=== PATIENT | female | born 2000 | race Caucasian/White ===

== ENCOUNTER 2023-08-29 23:02 | Emergency (ER) | payer OTHER, SELFPAY ==
[2023-08-29 23:07] VITALS: BP 115/81; PULSE 100; RESP 16; TEMP 36.4; O2SAT 98; BMI 27.5
[2023-08-29 23:24] LABS: Appearance Urine Cloudy (Clear); Bilirubin Urine Negative (Negative); Blood Urine 3+ (Negative); Color Urine Red (Yellow); Glucose Urine Negative (Negative); Ketones Urine Trace (Negative); Leukocyte Esterase Urine 1+ (Negative); Nitrite Urine Negative (Negative); Protein Urine 3+ (Negative); Specific Gravity Urine 1.025 (1.000-1.030); Urobilinogen Urine 0.2 (0.2-1.0); pH Urine 6.5 (5.0-8.5)
--- NOTE | 2023-08-29 23:25 | ED_ITS ---
HPI - Female Genitourinary General Chief complaint: Urogenital Problems, Female Stated complaint: blood in urine Time Seen by Provider: 08/29/23 23:10 History of Present Illness HPI Narrative: This 23-year-old female comes in with symptoms of dysuria that began about 4 hours prior to arrival. She is reporting hematuria with pain with voiding, increased frequency, and abdominal pain. She does not report any flank pain or fevers. Related Data Home Medications Medication Instructions Recorded Confirmed norethindrone acetate 1 mg-ethinyl 1 tab PO DAILY 08/29/23 08/29/23 estradiol 20 mcg tablet (June) Allergies Allergy/AdvReac Type Severity Reaction Status Date / Time No Known Drug Allergies Allergy Verified 08/29/23 23:09 Review of Systems Status of ROS: Reports: 10 or more systems reviewed and unremarkable except as noted in History and below Narrative: Constitutional: No fevers, no weight gain or loss. Eyes: No discharge. No vision changes. HENT: No congestion, no sore throat, no ear pain. Cardiovascular: No chest pain, no palpitations. Respiratory: No shortness of breath, no wheezes, no cough. Gastrointestinal: No abdominal pain, no vomiting, no diarrhea. Genitourinary: Dysuria the symptoms as described above. Musculoskeletal: Normal range of motion. Skin: No rashes, no pruritis. Neurological: No dizziness, weakness, sensory change, speech change. Endo/Heme/Allergies: No bruising or bleeding. No polydipsia. Pysch: no suicidality, no anxiety, no insomnia. All other systems reviewed and are negative. Exam Narrative: Exam Narrative: Constitutional: Well-developed, well-nourished, no acute distress. HEENT: Normocephalic, atraumatic. Neck: Normal range of motion. Nontender. Supple. Heart: Intact distal pulses. Lungs: No chest discomfort. No wheezes, rhonchi, or rales. Abdomen: Lower abdominal tenderness. No flank pain. Back: Normal range of motion. Extremities: Normal range of motion. No injury. Skin: Intact. No rash. Warm. No erythema or pallor. Neurologic: No altered sensation. No weakness. Alert and oriented. Psychiatric: No suicidality. No anxiety or depression. No insomnia. Nursing notes and vitals signs are reviewed. Const: Vital Signs, click to edit/add: Vital Signs - 24 hr 08/29/23 23:07 Temperature 97.6 F Pulse Rate [Left P ulse Oximeter] 100 Respiratory Rate 16 Blood Pressure [Ri ght Upper Arm] 115/81 Pulse Oximetry 98 Oxygen Delivery Me thod Room Air Course Vital Signs Vital signs: Initial Vital Signs Temperature 97.6 F 08/29/23 23:07 Temperature Source Temporal Artery Scan 08/29/23 23:07 Pulse Rate 100 08/29/23 23:07 Pulse Rhythm Regular 08/29/23 23:07 Respiratory Rate 16 08/29/23 23:07 Blood Pressure 115/81 08/29/23 23:07 Blood Pressure Mean 92 08/29/23 23:07 Blood Pressure Position Sitting 08/29/23 23:07 Pulse Oximetry 98 08/29/23 23:07 Oxygen Delivery Method Room Air 08/29/23 23:07 Vital Signs Temperature 97.6 F 08/29/23 23:07 Pulse Rate 100 08/29/23 23:07 Respiratory Rate 16 08/29/23 23:07 Blood Pressure 115/81 08/29/23 23:07 Pulse Oximetry 98 08/29/23 23:07 Oxygen Delivery Method Room Air 08/29/23 23:07 Temperature 97.6 F 08/29/23 23:07 Pulse Rate 100 08/29/23 23:07 Respiratory Rate 16 08/29/23 23:07 Blood Pressure 115/81 08/29/23 23:07 Pulse Oximetry 98 08/29/23 23:07 Oxygen Delivery Method Room Air 08/29/23 23:07 Medications Administered Medications: Generic Name Dose Route Start Last Admin Trade Name Nehemiahq PRN Reason Stop Dose Admin Phenazopyridine HCl 200 mg 08/29/23 23:25 08/29/23 23:35 Phenazopyridine Hcl 200 Mg Tablet PO 08/29/23 23:26 200 mg ONCE ONE Administration MDM - Female Genitourinary MDM Narrative Medical decision making narrative: This patient comes in with dysuria symptoms starting about 4 hours prior to arrival. She has gross hematuria. Urinalysis does show hematuria and elevated white blood cell count to 5-10 per high-powered field. Leukocyte esterase and nitrites are negative. This is likely due to urinary tract infection. Urine cultures are pending. Patient did receive an oral tablet of Pyridium for symptomatic relief here. She also received a prescription for Keflex from the [facility] Lab Data Labs: Lab Results 08/29/23 Range/Units 23:15 Urine Color Red A (Yellow) Urine Appearance Cloudy A (Clear) Urine pH 6.5 (5.0-8.5) Ur Specific [place] 1.025 (1.000-1.030) Urine Protein 3+ A (Negative) Urine Glucose (UA) Negative (Negative) Urine Ketones Trace A (Negative) Urine Blood 3+ A (Negative) Urine Nitrite Negative (Negative) Urine Bilirubin Negative (Negative) Urine Urobilinogen 0.2 (0.2-1.0) Ur Leukocyte Esterase 1+ A (Negative) Urine RBC 25-50 A (0-2) Urine WBC 5-10 A (0-5) Ur Squamous Epith Cells Few (None-Few) Urine Bacteria Few A (None) Discharge Plan Discharge Clinical Impression: Urinary tract infection Patient Disposition: Home, Self-Care Condition: Stable Additional Instructions: Take medication as prescribed. Use [id number] medicines also as needed and directed. Take plenty of fluids orally. Follow up with MD return if worsening. Prescriptions: No Action norethindrone ac-eth estradiol [06/01 (21)] 1-20 mg-mcg tablet 1 tab PO DAILY Stand Alone Forms: [employer] Info Instructions
[2023-08-29] MEDS: PHENAZOPYRIDINE HCL 200 MG TABLET PO (23:35)
[2023-08-29 23:38] LABS: RBC Urine 25-50 (0-2)
[2023-08-29 23:39] LABS: Bacteria Urine Few; Squamous Epithelial Cell Urine Few (None-Few)
[2023-08-29] MEDS: cephALEXin 500 MG CAPSULE PO (23:52)
--- OUTSIDE RECORDS SUMMARY | 2023-08-29 23:58 | XMS_ITS | Clinical Summary ---
Author Name Unknown Organization [facility] Address [address] [place] [address] Care Team Providers Care Vocational Trainer Name Role Phone Silviano Box DO Primary Care Provider [phone] Allergies No known active allergies Medications No known medications Active Problems No known active problems Social History Tobacco Use Types Packs/Day Years Used Date Smoking Tobacco: Never Assessed Sex and Gender Information Value Date Recorded Sex Assigned at Not on file Gender Identity Not on file Sexual Orientation Not on file Plan of Treatment Health Maintenance Due Date Last Done Comments Hearing Screening age 18-21 2020 COVID-19 Vaccine (2022-2 4 season) 2023 Pneumococcal Vaccine: Pediat rics (0 to 5 Years) and At-Risk Patients (6 to 64 Years) Aged Out No longer eligi ble based on patient's age to complete this topic Care Teams Vocational Trainer Relationship Specialty Start Date End Date Silviano Box DO [id number] [place], [place] [id number] PCP - General Family Practice 08/17/14
--- OUTSIDE RECORDS SUMMARY | 2023-08-29 23:58 | XMS_ITS | Referral Summary ---
Author Name Unknown Organization [facility] Address [address] [place] [address] Care Team Providers Care Green Chain Puller Name Role Phone Silviano Box DO Primary Care Provider [phone] Allergies No known active allergies Medications No known medications Active Problems No known active problems Social History Tobacco Use Types Packs/Day Years Used Date Smoking Tobacco: Never Assessed Sex and Gender Information Value Date Recorded Sex Assigned at Not on file Gender Identity Not on file Sexual Orientation Not on file Plan of Treatment Not on file Care Teams Green Chain Puller Relationship Specialty Start Date End Date Silviano Box DO [id number] [place] [address] PCP - General Family Practice 08/17/14
== END 2023-08-30 00:01 | disposition home or self-care (01) ==
LOC: ED 23:57
PROVIDERS: Emergency Provider Emergency Medicine Emergency Medical Services
DX: N39.0 Urinary tract infection, site not specified (principal)
CPT/HCPCS: 81001; 87086; 87186; 99283; 99284; A9270